=== PATIENT | female | born 1995 | race Caucasian/White ===

== ENCOUNTER 2017-02-17 13:37 | Observation (INO) | payer OTHER ==
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
[2017-02-17] MEDS ORDERED: LORazepam 1 MG TAB PO ONE (15:06)
[2017-02-17] MEDS ORDERED: BUPIVACAINE 0.5% 30 ML SDV ONE (17:16)
[2017-02-17] MEDS ORDERED: LR 1,000 ML IV ONE (17:47)
[2017-02-17] MEDS ORDERED: MIDAZOLAM 2 MG/2 ML VIAL IVP ONE (18:13)
--- NOTE | 2017-02-17 18:16 | PDANEPAE ---
ANE History of Present Illness L radius ORIF ANE Past Medical History - Pulmonary History Hx Oxygen in Use at Home: No Hx Sleep Apnea: No Sleep Apnea Screening Result - Last Documented: Negative - Endocrine History Hx Diabetes: No ANE Review of Systems Review of systems is: negative - Exercise capacity Exercise capacity: >=4 METS ANE Patient History - Allergies Allergies/Adverse Reactions: No Known Allergies Allergy (Verified 02/17/17 17:21) - Home Medications Home medications: home medication list seen and reviewed Home Medications: Acetaminophen [Tylenol 325mg (*)] 650 mg PO PRN PRN 02/17/17 [Last Taken 08:00] Cholecalciferol Vit D3 [Vitamin D3 (*)] 5,000 units PO DAILY 02/17/17 [Last Taken 02/17/17] Herbals/Supplements -Info Only 1 ea PO DAILY 02/17/17 [Last Taken Unknown] [place]-3 Fatty Acids [Fish Oil 1000 mg (*)] 1,000 mg PO DAILY 02/17/17 [Last Taken 02/17/17] - NPO status NPO Status: no food or drink >8 hours NPO Since - Liquids (Date): 02/17/17 NPO Since - Liquids (Time): 13:00 NPO Since - Solids (Date): 02/16/17 NPO Since - Solids (Time): 19:00 - Anes Hx Anes Hx: no prior problems - Smoking Hx Smoking Status: Never smoked - Family Anes Hx Family Anes Hx: none ANE Labs/Vital Signs - Vital Signs Blood Pressure: 141/73 Heart Rate: 109 Respiratory Rate: 15 O2 Sat (%): 95 Height: 165.1 cm Weight: 61.235 kg ANE Physical Exam - Airway Neck exam: FROM Mallampati Score: Class 1 Mouth exam: normal dental/mouth exam - Pulmonary Pulmonary: no respiratory distress - Cardiovascular Cardiovascular: regular rate and rhythym - ASA Status ASA Status: I ANE Anesthesia Plan Anesthesia Plan: GA w LMA
[2017-02-17] MEDS ORDERED: ONDANSETRON 4 MG/2 ML VIAL ONE ×2 (18:31→21:25)
[2017-02-17] MEDS ORDERED: LIDOCAINE 2% 100 MG/5 ML SYR ONE (18:31)
[2017-02-17] MEDS ORDERED: PROPOFOL 200 MG/20 ML VIAL ONE ×2 (18:31→19:35)
[2017-02-17] MEDS ORDERED: DEXAMETHASONE 4 MG/ML VIAL ONE (18:31)
[2017-02-17] MEDS ORDERED: HYDROmorphONE/DILAUDID 2 MG/ML INJ ONE (18:32)
[2017-02-17] MEDS ORDERED: ceFAZolin 1 GM VIAL ONE ×2 (18:39)
[2017-02-17] MEDS ORDERED: CHLORHEXIDINE GLUC HIBICLENS 118 ML BTL TP ONE (18:51)
[2017-02-17] MEDS ORDERED: BUPIVACAINE 0.25% 30 ML SDV ONE (18:55)
[2017-02-17] MEDS ORDERED: MEPERIDINE 25 MG/ML SYR IVP PRN (20:16)
[2017-02-17] MEDS ORDERED: PROMETHAZINE HCL 25 MG/ML INJ IVP PRN (20:16)
[2017-02-17] MEDS ORDERED: HYDROCODONE/APAP 5/325 TAB PO PRN (20:16)
[2017-02-17] MEDS ORDERED: HYDROmorphONE/DILAUDID 1 MG/ML SYR IVP PRN ×2 (20:16→21:20)
[2017-02-17] MEDS ORDERED: DEXAMETHASONE 4 MG/ML VIAL IVP PRN (20:16)
[2017-02-17] MEDS ORDERED: NALOXONE HCL 0.4 MG/ML INJ IVP PRN (20:16)
[2017-02-17] MEDS ORDERED: ONDANSETRON 4 MG/2 ML VIAL IVP PRN ×2 (20:16→20:45)
[2017-02-17] MEDS ORDERED: fentaNYL 100 MCG/2 ML INJ IVP PRN ×2 (20:16→21:37)
[2017-02-17] MEDS ORDERED: ACETAMINOPHEN 500 MG TAB PO PRN (20:16)
[2017-02-17] MEDS ORDERED: OXYCODONE/APAP 5/325 TAB PO PRN (20:16)
--- NOTE | 2017-02-17 20:18 | POSTANESTH ---
Post Anesthetic Evaluation Cardiovascular Status: Normal, Stable, Similar to Pre-Op Cond Respiratory Status: Normal, Stable, Similar to Pre-op Cond. Level of Consciousness/Mental Status: Can Participate in Eval, Moderately Sleepy Pain Control: Adequate, Prn Tx Ordered Nausea/Vomiting Control: Adequate, Prn Tx Ordered Complications Possibly Related to Anesthesia: None Noted
[2017-02-17] MEDS ORDERED: D5W 1/2 NS W/ 20 KCl/L 1,000 ML IV SCH (21:15)
[2017-02-17] MEDS ORDERED: fentaNYL 100 MCG/2 ML INJ ONE (21:25)
--- NOTE | 2017-02-17 21:27 | POSTOPPROG ---
Post Op Note Date of Operation: 02/17/17 Surgeon: Jhon Marino Automotive Generator Repairer: Manasa Anguiano PA-C Pre-op Diagnosis: Left Radial shaft fracture Post-op Diagnosis: Left Radial shaft fracture Indication: displaced left radial shaft fracture Procedure: Open reduction internal fixaiton left radial shaft fracture Findings: see operative note Inf/Abcess present in the surg proc area at time of surgery?: No EBL: Minimal Complications: No complications. Neurovascular exam done post operatively in PACU: PIYUSH SANCHEZ.
[2017-02-17] MEDS ORDERED: PROMETHAZINE HCL 25 MG/ML INJ ONE (21:50)
[2017-02-17] MEDS: ceFAZolin 2 GM/DEXTROSE 100 ML IV SCH (23:06)
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
[2017-02-18] MEDS: OXYCODONE/APAP 5/325 TAB PO PRN ×3 (03:24→10:42)
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
--- NOTE | 2017-02-18 08:03 | SOAPPROG ---
SOAP Progress Note Assessment/Plan: Assessment: POD#1 ORIF left radial shaft fracture Plan: NWB LUE Keep splint in place - sling for comfort Pain medicine as needed Ice/Elevation Okay for D/C when pain is stable and pt has last antibiotic dose. Ortho Stable: D/C planning Objective: Vital Signs Temp Pulse Resp BP Pulse Ox 36.8 C 91 16 120/62 97 02/18/17 07:48 02/18/17 07:48 02/18/17 07:48 02/18/17 07:48 02/18/17 07:48 02/17/17 02/18/17 02/19/17 05:59 05:59 05:59 Intake Total 1791 Output Total 25 Balance 1766 Physical exam of the LUE: splint is in place. Patient able to move all 5 fingers. Normal sensation to light touch in the LUE. ICD10 Worksheet Patient Problems: Problems Problem Status Onset Radius fracture Acute
[2017-02-18 11:18] VITALS: BP 113/53; PULSE 87; RESP 14; TEMP 97.9; O2SAT 4
--- NOTE | 2017-02-18 15:39 | ASDISCHSUM ---
Discharge Information Plan Status:Home with No Needs Medically Cleared to Leave: Discharge Date:02/18/2017 01:10 PM CM D/C Disposition:Home, Routine, Self-Care ADT D/C Disposition:Home, Routine, Self-Care Projected Discharge Date:02/18/2017 01:10 PM Transportation at D/C:Self Discharge Delay Reason: Follow-Up Date:02/18/2017 01:10 PM Discharge Slot: Final Diagnosis: Placement Information Patient Contact Information Contact Name:TONYDAJA Relationship: Address: Home Phone: Work Phone: City: Alternate Phone: State/Zip Code: Email: Financial Information Financial Class:Commercial Primary Plan Desc:[facility] Primary Plan Number:[id number] Secondary Plan Desc: Secondary Plan Number: Assessment Information Intervention Information
== END 2017-02-18 13:10 | disposition home or self-care (01) ==
LOC: F3N 16:02
PROVIDERS: ADMIT Orthopaedic Surgery; ATTEND Orthopaedic Surgery
PROC: 2W3DX1Z Immobilization of Left Lower Arm using Splint (ICD-10-PCS; 2017-02-17)
PROC: 0PSJ04Z Reposition Left Radius with Internal Fixation Device, Open Approach (ICD-10-PCS; principal; 2017-02-17 18:30)
DX: S52.332A Displaced oblique fracture of shaft of left radius, initial encounter for closed fracture (principal); T14.8 Other injury of unspecified body region; Y93.55 Activity, bike riding; V18.0XXA Pedal cycle driver injured in noncollision transport accident in nontraffic accident, initial encounter; Y92.414 Local residential or business street as the place of occurrence of the external cause; Y99.8 Other external cause status
CPT/HCPCS: 25500; 25525; 73090; 92523; 97165; G0378; A4565; C1713; J0171; J0690; J1100; J1170; J2001; J2250; J2405; J2550; J2704; J3010